=== PATIENT | male | born 1995 | race American Indian/Alaskan Native ===

== ENCOUNTER 2016-11-29 07:15 | Emergency (ER) | payer MEDICAID ==
[2016-11-29] MEDS ORDERED: TYLENOL PO ONE (11:18)
--- NOTE | 2016-11-29 11:19 | Emergency Department Report ---
ED Male HPI - General Chief complaint: Abdominal Pain Stated complaint: GROIN INJURY Time Seen by Provider: 11/29/16 11:14 Source: patient, RN notes reviewed Mode of arrival: Ambulatory Limitations: No Limitations - History of Present Illness Initial comments: This is a 22-year-old male. he is previously unknown to me. The patient presents to the ER with left-sided testicular pain after an accidental groin injury sustained while playing basketball yesterday. He reports that he played basketball yesterday after receiving the injury. The pain is sharp. It increases with palpation and range of motion. It decreases with rest. Patient denies all other complaints. MD Complaint: testicle pain -: Sudden Location: left testicle Radiation: none Severity: moderate Quality: aching Consistency: constant Improves with: rest Worsens with: movement trauma denies other symptoms - Related Data Home Medications Medication Instructions Recorded Confirmed Last Taken Divalproex Sodium [Depakote] 500 mg PO BID 06/24/15 06/24/15 Unknown traZODone 150 mg PO HS 06/24/15 06/24/15 Unknown Allergies Allergy/AdvReac Type Severity Reaction Status Date / Time aspirin Allergy Rash Verified 02/10/15 17:14 ED Review of Systems ROS: Stated complaint: GROIN INJURY Other details as noted in HPI Constitutional: denies: fever Eyes: denies: eye discharge ENT: denies: epistaxis Respiratory: denies: cough Cardiovascular: denies: chest pain Gastrointestinal: denies: abdominal pain Genitourinary: testicular pain. denies: urgency, dysuria, frequency, hematuria , discharge Musculoskeletal: denies: back pain Neurological: denies: weakness ED Past Medical Hx - Past Medical History Previous Medical History?: Yes Hx Psychiatric Treatment: Yes (depression, bipolar) Hx Asthma: Yes - Surgical History Past Surgical History?: Yes Additional Surgical History: right knee surgery - Social History Smoking Status: Never Smoker Substance Use Type: None - Medications Home Medications: Home Medications Medication Instructions Recorded Confirmed Last Taken Type Divalproex Sodium [Depakote] 500 mg PO BID 06/24/15 06/24/15 Unknown History traZODone 150 mg PO HS 06/24/15 06/24/15 Unknown History ED Physical Exam - General Limitations: No Limitations General appearance: alert, in no apparent distress - Head Head exam: Present: atraumatic, normocephalic - Eye Eye exam: Present: normal appearance, EOMI. Absent: nystagmus - ENT ENT exam: Present: normal exam, normal orophraynx, mucous membranes moist - Neck Neck exam: Present: normal inspection, full ROM. Absent: tenderness, meningismus - Respiratory Respiratory exam: Present: normal lung sounds bilaterally. Absent: respiratory distress, wheezes, rales, rhonchi, stridor, chest wall tenderness - Cardiovascular Cardiovascular Exam: Present: normal rhythm, bradycardia, normal heart sounds. Absent: systolic murmur, diastolic murmur, rubs, gallop - GI/Abdominal GI/Abdominal exam: Present: soft, normal bowel sounds. Absent: distended, tenderness, guarding, rebound, rigid, pulsatile mass - Rectal Rectal exam: Present: deferred - exam: Present: testicular tenderness External exam: Present: normal external exam, other (there is left-sided testicular tenderness. There is normal cremasteric reflex bilaterally. There is normal testicular lie bilaterally. Escorted by nurse Aundrea vivar) - Extremities Exam Extremities exam: Present: normal inspection, full ROM, normal capillary refill. Absent: pedal edema, joint swelling, calf tenderness - Back Exam Back exam: Present: normal inspection, full ROM. Absent: tenderness, CVA tenderness (R), CVA tenderness (L), muscle spasm, paraspinal tenderness, vertebral tenderness - Neurological Exam Neurological exam: Present: alert, oriented X3, normal gait, other (Extraocular movements intact. Tongue midline. No facial droop. Facial sensation intact to light touch in the V1, V2, V3 distribution bilaterally. 5 and 5 strength in 4 extremities.. Sensation is intact to light touch in 4 extremities.). Absent : motor sensory deficit - Psychiatric Psychiatric exam: Present: normal affect, normal mood - Skin Skin exam: Present: warm, dry, intact, normal color. Absent: rash ED Course Vital Signs 11/29/16 11/29/16 11/29/16 07:51 12:07 14:08 Temperature 97.6 F 98.0 F Pulse Rate 53 L 67 Respiratory 16 20 20 Rate Blood Pressure 114/70 Blood Pressure 135/72 [Left] O2 Sat by Pulse 100 98 Oximetry - Reevaluation(s) Reevaluation #1: 11/29/16 12:55 ultrasound is negative. Patient wants to go home. He does not endorse any urinary symptoms. He will be discharged. Return precautions are reviewed. ED Medical Decision Making - Lab Data Vital Signs 11/29/16 11/29/16 07:51 12:07 Temperature 97.6 F Pulse Rate 53 L Respiratory 16 20 Rate Blood Pressure 114/70 O2 Sat by Pulse 100 Oximetry - Radiology Data Radiology results: report reviewed, image reviewed Critical care attestation.: If time is entered above; I have spent that time in minutes in the direct care of this critically ill patient, excluding procedure time. ED Disposition Clinical Impression: Left testicular pain Disposition: DC-01 TO HOME OR SELFCARE Is pt being admited?: No Does the pt Need Aspirin: No Condition: Stable Additional Instructions: Take Tylenol every 4-6 hours as needed for pain. Rest and avoid heavy lifting. Avoid strenuous physical activity. Make certain to wear protective gear when playing basketball. Physical activity as tolerated. Follow up with your primary care doctor within the next 2-3 weeks. Follow-up with Dr. Rizo, or any urology specialist within the next 7-10 days if pain persists. Return to the ER right away with new pain, worsening pain, migration of pain, fevers, chills, shortness of breath, chest pain, intractable nausea or vomiting, inability to tolerate liquid feeds. Referrals: PRIMARY CARE, [Primary Care Provider] - 3-5 Days SAMEERA RIZO MD [Staff Physician] - 3-5 Days KAILASH MARINELLI MD [Staff Physician] - 3-5 Days
--- NOTE | 2016-11-29 12:03 | Ultrasound Report ---
Testicular ultrasound: Trauma, pain mostly on the left. The right testicle measures 23 x 31 x 47 mm. The left testicle measures 25 x 28 x 42 mm. Both testicles have a normal echo pattern and normal vascular flow with Doppler and color imaging. The right epididymis measures 1 cm and the left measures 1.2 cm in size. Both appear echogenically unremarkable. A minimal degree of hydrocele fluid is noted on the right side. Impressions: Minimal right hydrocele.
[2016-11-29 14:09] VITALS: BP 135/72
== END 2016-11-29 14:18 | disposition home or self-care (01) ==
LOC: ED 07:15
DX: N50.812 Left testicular pain (principal); F31.9 Bipolar disorder, unspecified; Z88.6 Allergy status to analgesic agent
CPT/HCPCS: 93975

== ENCOUNTER 2017-01-14 23:32 | Emergency (ER) | payer MEDICAID ==
--- NOTE | 2017-01-15 12:07 | Emergency Department Report ---
ED Male HPI - General Chief complaint: Extremity Injury, Lower Stated complaint: PULLED MUSCLE Time Seen by Provider: 01/15/17 11:48 Source: patient Mode of arrival: Ambulatory Limitations: No Limitations - History of Present Illness Initial comments: 21-year-old male past medical history asthma, bipolar disorder presents with complaint of right groin/right testicular pain status post playing basketball last night. Patient states he jumped when he came down he felt pain in his right testicle. This occurred approximately 7:30 PM last night. Patient denies nausea vomiting fever chills or dysuria. States that he has aching sensation in his right testicle. Denies any hematuria. Denies any significant testicular swelling. Location: right testicle Radiation: none Severity: moderate Severity scale (0 -10): 3 Quality: dull Consistency: intermittent Improves with: none Worsens with: movement denies other symptoms - Related Data Home Medications Medication Instructions Recorded Confirmed Last Taken ALBUTEROL Inhaler 1 puff INHALATION Q4H PRN 01/14/17 01/14/17 01/14/17 Previous Rx's Medication Instructions Recorded Last Taken Type Acetaminophen [Acetaminophen TAB] 500 mg PO Q6HR PRN #30 tablet 01/15/17 Unknown Rx Allergies Allergy/AdvReac Type Severity Reaction Status Date / Time aspirin Allergy Rash Verified 02/10/15 17:14 ED Review of Systems ROS: Stated complaint: PULLED MUSCLE Other details as noted in HPI Constitutional: denies: chills, fever Eyes: denies: eye pain, eye discharge, vision change ENT: denies: ear pain, throat pain Respiratory: denies: cough, shortness of breath, wheezing Cardiovascular: denies: chest pain, palpitations Endocrine: no symptoms reported Gastrointestinal: denies: abdominal pain, nausea, diarrhea Genitourinary: denies: urgency, dysuria Musculoskeletal: denies: back pain, joint swelling, arthralgia Skin: denies: rash, lesions Neurological: denies: headache, weakness, paresthesias Psychiatric: denies: anxiety, depression Hematological/Lymphatic: denies: easy bleeding, easy bruising ED Past Medical Hx - Past Medical History Hx Psychiatric Treatment: Yes (depression, bipolar) Hx Asthma: Yes - Surgical History Additional Surgical History: right knee surgery - Social History Smoking Status: Never Smoker Substance Use Type: None - Medications Home Medications: Home Medications Medication Instructions Recorded Confirmed Last Taken Type ALBUTEROL Inhaler 1 puff INHALATION Q4H PRN 01/14/17 01/14/17 01/14/17 History Acetaminophen [Acetaminophen TAB] 500 mg PO Q6HR PRN #30 tablet 01/15/17 Unknown Rx ED Physical Exam - General Limitations: No Limitations General appearance: alert, in no apparent distress - Head Head exam: Present: atraumatic, normocephalic - Eye Eye exam: Present: normal appearance, PERRL, EOMI - ENT ENT exam: Present: mucous membranes moist - Neck Neck exam: Present: normal inspection - Respiratory Respiratory exam: Present: normal lung sounds bilaterally. Absent: respiratory distress - Cardiovascular Cardiovascular Exam: Present: regular rate, normal rhythm. Absent: systolic murmur, diastolic murmur, rubs, gallop - GI/Abdominal GI/Abdominal exam: Present: soft, normal bowel sounds - Rectal Rectal exam: Present: deferred - exam: Present: normal inspection (no palpable hernias no palpable masses no masses in the inguinal rings bilaterally on palpation with finger), testicular tenderness (some mild right testicular discomfort on deep palpation. No palpable hernia and inguinal rings bilaterally on deep) - Extremities Exam Extremities exam: Present: normal inspection - Back Exam Back exam: Present: normal inspection - Neurological Exam Neurological exam: Present: alert, oriented X3, CN II-XII intact, normal gait - Psychiatric Psychiatric exam: Present: normal affect, normal mood - Skin Skin exam: Present: warm, dry, intact, normal color. Absent: rash ED Course Vital Signs 01/14/17 23:37 Temperature 98.2 F Pulse Rate 89 Respiratory 18 Rate Blood Pressure 123/74 Blood Pressure 123/74 [Left] O2 Sat by Pulse 99 Oximetry ED Medical Decision Making - Medical Decision Making A/P: Strained groin muscle, groin muscle pull 1-urinalysis unremarkable, testicular ultrasound unremarkable 2-patient has some pain in the groin with movement of thigh it is likely he strained his groin while playing basketball. Abdomen is soft nontender no right lower quadrant pain 3-extra strength tylenol when necessary, follow-up with primary care Critical care attestation.: If time is entered above; I have spent that time in minutes in the direct care of this critically ill patient, excluding procedure time. ED Disposition Clinical Impression: Groin pain Qualifiers: Laterality: right Qualified Code(s): R10.31 - Right lower quadrant pain Disposition: DC-01 TO HOME OR SELFCARE Is pt being admited?: No Does the pt Need Aspirin: No Condition: Undetermined Instructions: Groin Strain (ED), Groin Pain (ED) Prescriptions: Acetaminophen [Acetaminophen TAB] 500 mg PO Q6HR PRN #30 tablet PRN Reason: Pain Referrals: [facility]– [place]Outside] - 3-5 Days [facility] [Outside] - 3-5 Days Forms: Work/School Release Form(ED) Time of Disposition: 13:06
[2017-01-15 12:33] LABS: Bilirubin,Urine NEG (Negative); Blood,Urine NEG (Negative); Ketones,Urine NEG (Negative); Leukocyte Esterase,Urine NEG (Negative); Mucus,Urine FEW /HPF; Nitrite,Urine NEG (Negative); Protein,Urine <15 mg/dL mg/dL (Negative); Urobilinogen,Urine < 2.0 mg/dL (<2.0); WBC,Urine < 1.0 /HPF (0.0-6.0)
--- NOTE | 2017-01-15 12:47 | Ultrasound Report ---
TESTICULAR ULTRASOUND WITH DUPLEX DOPPLER ULTRASOUND: 01/15/17 12:05:00 CLINICAL: Right testicular pain. COMPARISON: 11/29/16 FINDINGS: High resolution ultrasound demonstrated normal testes with normal echogenicity size and contours. No testicular mass. The right testis measured 4.0 x 2.2 x 3.5cm. The left testis measured 4.9 x 1.9 x 3.0cm. Both testes and epididymes demonstrated normal blood flow by color and duplex Doppler with normal spectral waveforms. No hydrocele. No inguinal hernia identified. IMPRESSION: Normal study. Resolution of a small right hydrocele. No inguinal hernia identified.
[2017-01-15] MEDS ORDERED: TYLENOL PO ONE (12:54)
[2017-01-15 13:36] VITALS: BP 107/88
== END 2017-01-15 13:36 | disposition home or self-care (01) ==
LOC: ED 23:32
DX: R10.31 Right lower quadrant pain (principal); J45.909 Unspecified asthma, uncomplicated
CPT/HCPCS: 81001; 87086; 93975

== ENCOUNTER 2017-01-25 01:59 | Emergency (ER) | payer MEDICAID ==
[2017-01-25 02:53] VITALS: BP 117/51
--- NOTE | 2017-01-25 03:24 | Emergency Department Report ---
ED ENT HPI - General Chief complaint: Sore Throat Stated complaint: SORE THROAT Time Seen by Provider: 01/25/17 03:00 Source: patient Mode of arrival: Ambulatory Limitations: No Limitations - History of Present Illness Initial comments: This is a 1-year-old male nontoxic, well nourished in appearance, no acute signs of distress presents to the ED complaining of sore throat, cough, and rhinorrhea 4 days. Patient describes sore throat as swallowing razor blades with level of 7 out of 10. He denies any chest pain, shortness of breath, nausea, vomiting, chest pain, shortness of breath, numbness or tingling. Patient denies any calf pain or tenderness. Denies recent travels, long car rides or recent hospital stays. Denies hemoptysis. Denies any allergies or past medical history. MD complaint: sore throat -: Gradual, days(s) (4) Location: throat Severity: mild Severity scale (0 -10): 8 Quality: other (sensation swallowing razor blades) Consistency: constant Improves with: none Worsens with: swallowing Associated Symptoms: cough, pain with swallowing, sore throat. denies: fever, gum swelling, toothache, tinnitus, hearing loss, discharge from ear, rhinorrhea - Related Data Home Medications Medication Instructions Recorded Confirmed Last Taken ALBUTEROL Inhaler 1 puff INHALATION Q4H PRN 01/14/17 01/14/17 01/14/17 Previous Rx's Medication Instructions Recorded Last Taken Type Acetaminophen [Acetaminophen TAB] 500 mg PO Q6HR PRN #30 tablet 01/15/17 Unknown Rx Amoxicillin 500 mg PO BID #20 capsule 01/25/17 Unknown Rx Nystas/Diphen/Xyl Visc/Mylanta 30 ml PO DAILY PRN 10 Days 01/25/17 Unknown Rx [Magic Mouthwash] Allergies Allergy/AdvReac Type Severity Reaction Status Date / Time aspirin Allergy Rash Verified 02/10/15 17:14 ED Dental HPI - General Chief complaint: Sore Throat Stated complaint: SORE THROAT Time Seen by Provider: 01/25/17 03:00 Source: patient Mode of arrival: Ambulatory Limitations: No Limitations - Related Data Home Medications Medication Instructions Recorded Confirmed Last Taken ALBUTEROL Inhaler 1 puff INHALATION Q4H PRN 01/14/17 01/14/17 01/14/17 Previous Rx's Medication Instructions Recorded Last Taken Type Acetaminophen [Acetaminophen TAB] 500 mg PO Q6HR PRN #30 tablet 01/15/17 Unknown Rx Amoxicillin 500 mg PO BID #20 capsule 01/25/17 Unknown Rx Nystas/Diphen/Xyl Visc/Mylanta 30 ml PO DAILY PRN 10 Days 01/25/17 Unknown Rx [Magic Mouthwash] Allergies Allergy/AdvReac Type Severity Reaction Status Date / Time aspirin Allergy Rash Verified 02/10/15 17:14 ED Review of Systems ROS: Stated complaint: SORE THROAT Other details as noted in HPI Constitutional: denies: chills, fever Eyes: denies: eye pain, eye discharge, vision change ENT: throat pain. denies: ear pain Respiratory: cough. denies: shortness of breath, wheezing Cardiovascular: denies: chest pain, palpitations Endocrine: no symptoms reported Gastrointestinal: denies: abdominal pain, nausea, diarrhea Genitourinary: denies: urgency, dysuria Musculoskeletal: denies: back pain, joint swelling, arthralgia Skin: denies: rash, lesions Neurological: denies: headache, weakness, paresthesias Psychiatric: denies: anxiety, depression Hematological/Lymphatic: denies: easy bleeding, easy bruising ED Past Medical Hx - Past Medical History Previous Medical History?: Yes Hx Psychiatric Treatment: Yes (depression, bipolar) Hx Asthma: Yes - Surgical History Additional Surgical History: right knee surgery - Social History Smoking Status: Never Smoker - Medications Home Medications: Home Medications Medication Instructions Recorded Confirmed Last Taken Type ALBUTEROL Inhaler 1 puff INHALATION Q4H PRN 01/14/17 01/14/17 01/14/17 History Acetaminophen [Acetaminophen TAB] 500 mg PO Q6HR PRN #30 tablet 01/15/17 Unknown Rx Amoxicillin 500 mg PO BID #20 capsule 01/25/17 Unknown Rx Nystas/Diphen/Xyl Visc/Mylanta 30 ml PO DAILY PRN 10 Days 01/25/17 Unknown Rx [Magic Mouthwash] ED Physical Exam - General Limitations: No Limitations General appearance: alert, in no apparent distress - Head Head exam: Present: atraumatic, normocephalic, normal inspection - Eye Eye exam: Present: normal appearance, PERRL, EOMI. Absent: scleral icterus, conjunctival injection, nystagmus, periorbital swelling, periorbital tenderness Pupils: Present: normal accommodation - ENT ENT exam: Present: mucous membranes moist, TM's normal bilaterally, normal external ear exam - Expanded ENT Exam Expanded Ear exam: Present: normal external inspection Mouth exam: Present: normal external inspection, tongue normal. Absent: drooling, trismus, muffled voice, tongue elevation, laceration Teeth exam: Present: normal inspection Throat exam: Positive: tonsillar erythema, tonsillomegaly (2+), tonsillar exudate, other (no abscess or swelling noted. Uvula midline.). Negative: R peritonsillar mass, L peritonsillar mass - Neck Neck exam: Present: normal inspection, full ROM. Absent: tenderness, meningismus, lymphadenopathy, thyromegaly - Respiratory Respiratory exam: Present: normal lung sounds bilaterally. Absent: respiratory distress, wheezes, rales, rhonchi, stridor, chest wall tenderness, accessory muscle use, decreased breath sounds, prolonged expiratory - Cardiovascular Cardiovascular Exam: Present: regular rate, normal rhythm, normal heart sounds. Absent: bradycardia, tachycardia, irregular rhythm, systolic murmur, diastolic murmur, rubs, gallop - GI/Abdominal GI/Abdominal exam: Present: soft, normal bowel sounds. Absent: distended, tenderness, guarding, rebound, rigid, diminished bowel sounds - Rectal Rectal exam: Present: deferred - Extremities Exam Extremities exam: Present: normal inspection, full ROM, normal capillary refill. Absent: tenderness, pedal edema, joint swelling, calf tenderness - Back Exam Back exam: Present: normal inspection, full ROM. Absent: tenderness, CVA tenderness (R), CVA tenderness (L), muscle spasm, paraspinal tenderness, vertebral tenderness, rash noted - Neurological Exam Neurological exam: Present: alert, oriented X3, CN II-XII intact, normal gait, reflexes normal - Psychiatric Psychiatric exam: Present: normal affect, normal mood - Skin Skin exam: Present: warm, dry, intact, normal color. Absent: rash ED Course Vital Signs 01/25/17 02:47 Temperature 97.7 F Pulse Rate 55 L Respiratory 20 Rate Blood Pressure 117/51 O2 Sat by Pulse 97 Oximetry - Reevaluation(s) Reevaluation #1: 01/25/17 03:22 Patient is speaking in full sentences with no signs of distress. Critical care attestation.: If time is entered above; I have spent that time in minutes in the direct care of this critically ill patient, excluding procedure time. ED Disposition Clinical Impression: Tonsillitis with exudate Disposition: TO HOME OR SELFCARE Is pt being admited?: No Does the pt Need Aspirin: No Condition: Stable Instructions: Tonsillitis (ED), Amoxicillin (By mouth) Additional Instructions: Follow-up with a primary care doctor in 3-5 days or if symptoms worsen and continue return to emergency room as soon as possible possible. Prescriptions: Amoxicillin 500 mg PO BID #20 capsule Nystas/Diphen/Xyl Visc/Mylanta [Magic Mouthwash] 30 ml PO DAILY PRN 10 Days PRN Reason: Sore Throat Referrals: PRIMARY CARE, [Primary Care Provider] - 3-5 Days PARISH VELÁZQUEZ MD [Staff Physician] - 3-5 Days [facility] [Outside] - 3-5 Days [facility] [Outside] - 3-5 Days Forms: Work/School Release Form(ED)
== END 2017-01-25 04:35 | disposition home or self-care (01) ==
LOC: ED 01:59
DX: J03.90 Acute tonsillitis, unspecified (principal); J45.909 Unspecified asthma, uncomplicated; F31.9 Bipolar disorder, unspecified; Z88.6 Allergy status to analgesic agent
CPT/HCPCS: 87116; 87430; 99282

== ENCOUNTER 2017-02-23 02:12 | Emergency (ER) | payer MEDICAID ==
[2017-02-23 03:19] LABS: Basophils % (Auto) 1.2 % (0.0-1.8); Eosinophils % (Auto) 6.3 % (0.0-4.3); Hematocrit 41.1 % (35.5-45.6); Mean Corpuscular HGB Conc 34 % (32-34); Mean Corpuscular Hemoglobin 32 pg (28-32); Mean Corpuscular Volume 93 fl (84-94); Platelet Count 272 K/mm3 (140-440); Red Cell Distribution Width 12.7 % (13.2-15.2); White Blood Count 6.8 K/mm3 (4.5-11.0)
[2017-02-23 03:40] LABS: Anion Gap 15 mmol/L; BUN/Creatinine Ratio 26; Blood Urea Nitrogen 18 mg/dL (9-20); Calcium 8.8 mg/dL (8.4-10.2); Carbon Dioxide 26 mmol/L (22-30); Chloride 101.2 mmol/L (98-107); Glucose 98 mg/dL (75-100); Potassium 3.8 mmol/L (3.6-5.0); Sodium 138 mmol/L (137-145)
[2017-02-23 08:52] VITALS: BP 106/46
--- NOTE | 2017-02-23 10:29 | Emergency Department Report ---
ED Chest Pain HPI - General Chief Complaint: Chest Pain Stated Complaint: CHEST PAIN Time Seen by Provider: 02/23/17 10:07 Source: patient Mode of arrival: Ambulatory Limitations: No Limitations - History of Present Illness Initial Comments: 21-year-old male tells me he was hit in the chest yesterday playing football and is having some chest pain. He appears to be able to move without difficulty. He states that his movement is limited. He is not having any shortness of breath. He denies any fevers or chills. Otherwise he appears well. MD Complaint: chest pain -: Sudden Onset: during exertion Pain Location: left chest Pain Radiation: none Severity scale (0 -10): 0 Worsens With: exertion - Related Data Home Medications Medication Instructions Recorded Confirmed Last Taken ALBUTEROL Inhaler 1 puff INHALATION Q4H PRN 01/14/17 01/14/17 01/14/17 Previous Rx's Medication Instructions Recorded Last Taken Type Amoxicillin 500 mg PO BID #20 capsule 01/25/17 Unknown Rx Nystas/Diphen/Xyl Visc/Mylanta 30 ml PO DAILY PRN 10 Days 01/25/17 Unknown Rx [Magic Mouthwash] Acetaminophen [Acetaminophen TAB] 500 mg PO Q6HR PRN #30 tablet 02/23/17 Unknown Rx Allergies Allergy/AdvReac Type Severity Reaction Status Date / Time aspirin Allergy Rash Verified 02/10/15 17:14 Heart Score - HEART Score History: Slightly suspicious EKG: Normal Age: < 45 Risk factors: 1-2 risk factors Troponin: < normal limit HEART Score: 1 ED Review of Systems ROS: Stated complaint: CHEST PAIN Other details as noted in HPI Respiratory: denies: cough, shortness of breath, SOB with exertion Cardiovascular: chest pain. denies: palpitations Gastrointestinal: denies: nausea, vomiting Neurological: denies: headache, weakness ED Past Medical Hx - Past Medical History Previous Medical History?: Yes Hx Psychiatric Treatment: Yes (depression, bipolar) Hx Asthma: Yes - Surgical History Past Surgical History?: Yes Additional Surgical History: right knee surgery - Family History Family history: no significant - Social History Smoking Status: Never Smoker - Medications Home Medications: Home Medications Medication Instructions Recorded Confirmed Last Taken Type ALBUTEROL Inhaler 1 puff INHALATION Q4H PRN 01/14/17 01/14/17 01/14/17 History Amoxicillin 500 mg PO BID #20 capsule 01/25/17 Unknown Rx Nystas/Diphen/Xyl Visc/Mylanta 30 ml PO DAILY PRN 10 Days 01/25/17 Unknown Rx [Magic Mouthwash] Acetaminophen [Acetaminophen TAB] 500 mg PO Q6HR PRN #30 tablet 02/23/17 Unknown Rx ED Physical Exam - General Limitations: No Limitations General appearance: alert, in no apparent distress - Head Head exam: Present: atraumatic, normocephalic - Eye Eye exam: Present: normal appearance. Absent: scleral icterus, conjunctival injection - ENT ENT exam: Present: mucous membranes moist - Respiratory Respiratory exam: Present: normal lung sounds bilaterally. Absent: respiratory distress, wheezes - Cardiovascular Cardiovascular Exam: Present: regular rate, normal rhythm, normal heart sounds, other. Absent: systolic murmur, diastolic murmur, rubs, gallop - GI/Abdominal GI/Abdominal exam: Present: soft, normal bowel sounds - Rectal Rectal exam: Present: deferred - Extremities Exam Extremities exam: Present: normal inspection - Back Exam Back exam: Present: normal inspection - Neurological Exam Neurological exam: Present: alert, oriented X3 - Psychiatric Psychiatric exam: Present: normal affect, normal mood - Skin Skin exam: Present: warm, dry, intact, normal color. Absent: rash ED Course Vital Signs 02/23/17 02/23/17 02/23/17 02:28 02:33 08:48 Temperature 97.9 F 97.9 F 98.2 F Pulse Rate 52 L 54 L 51 L Respiratory 18 18 18 Rate Blood Pressure 112/53 112/53 Blood Pressure 106/46 [Right] O2 Sat by Pulse 97 98 99 Oximetry 02/23/17 08:56 Temperature Pulse Rate Respiratory 14 Rate Blood Pressure Blood Pressure [Right] O2 Sat by Pulse 100 Oximetry ED Medical Decision Making - Lab Data Result diagrams: 02/23/17 03:08 02/23/17 03:08 Laboratory Results - last 24 hr 02/23/17 02/23/17 03:08 03:08 WBC 6.8 RBC 4.40 Hgb 14.0 Hct 41.1 MCV 93 MCH 32 MCHC 34 RDW 12.7 L Plt Count 272 Lymph % (Auto) 40.8 H [place] % (Auto) 6.3 Eos % (Auto) 6.3 H Baso % (Auto) 1.2 Lymph # 2.8 [place] # 0.4 Eos # 0.4 Baso # 0.1 Seg Neutrophils % 45.4 Seg Neutrophils # 3.1 Sodium 138 Potassium 3.8 Chloride 101.2 Carbon Dioxide 26 Anion Gap 15 BUN 18 Creatinine 0.7 L Estimated GFR > 60 BUN/Creatinine Ratio 26 Glucose 98 Calcium 8.8 Troponin T < 0.010 - Medical Decision Making 21-year-old male who presents emergency department with complaint of chest pain after being hit in the chest while playing football. He is having a difficult to breathing his EKG is unremarkable his labs are unremarkable. Plan to treat him with NSAIDs and discharged. Portions of this chart were dictated with dictation software. There may be dictation errors contained within this note. Critical care attestation.: If time is entered above; I have spent that time in minutes in the direct care of this critically ill patient, excluding procedure time. ED Disposition Clinical Impression: Chest pain Disposition: DC-01 TO HOME OR SELFCARE Is pt being admited?: No Condition: Stable Instructions: Chest Pain (ED) Prescriptions: Acetaminophen [Acetaminophen TAB] 500 mg PO Q6HR PRN #30 tablet PRN Reason: Pain Referrals: PRIMARY CARE, [Primary Care Provider] - 3-5 Days
--- NOTE | 2017-02-23 10:29 | XRay Report ---
PORTABLE CHEST: SOB. An AP portable view of the chest demonstrates a normal cardiac contour considering the limits of this technique. The lungs are clear with no evidence of infiltrate, fluid or failure. IMPRESSION: Normal portable chest.
== END 2017-02-23 11:04 | disposition home or self-care (01) ==
LOC: ED 02:12
DX: R07.9 Chest pain, unspecified (principal); F31.9 Bipolar disorder, unspecified
CPT/HCPCS: 36415; 71010; 80048; 84484; 85025; 93005; 93010

== ENCOUNTER 2017-05-08 21:50 | Emergency (ER) | payer MEDICAID ==
[2017-05-08 22:34] LABS: Bilirubin,Urine NEG (Negative); Blood,Urine NEG (Negative); Color,Urine Yellow (Yellow); Mucus,Urine FEW /HPF; Nitrite,Urine NEG (Negative); Protein,Urine <15 mg/dL mg/dL (Negative)
--- NOTE | 2017-05-09 05:49 | Ultrasound Report ---
FINAL REPORT EXAM: US TESTICULAR DOPPLER COMP HISTORY: Trauma to Testicles TECHNIQUE: Routine sonographic evaluation was obtained of the scrotum including Doppler interrogation of the testicles. FINDINGS: Both testicles are normal in size contour blood flow and echotexture. The right testicle measures 5 cm x 2.3 cm x 3.2 cm. The left testicle measures 4.7 cm x 2.5 cm x 3 cm. The epididymi appear normal bilaterally. There is no evidence of hydrocele or varicocele bilaterally. IMPRESSION: Normal exam. No evidence of trauma to either testicle.
--- NOTE | 2017-05-09 07:32 | Emergency Department Report ---
ED Male HPI - General Chief complaint: Urogenital-Male Stated complaint: TESTACLE PAIN Time Seen by Provider: 05/09/17 07:31 Source: patient Mode of arrival: Ambulatory Limitations: No Limitations - History of Present Illness Initial comments: Patient here reports that he got hit in the testicles while playing basketball yesterday. He is reporting pain to the testicular area. Denies any bleeding or penile drainage. Denies any nausea or vomiting. Denies any urinary burning frequency or urgency. He said his pain is still a 10 at current and feels sore worse with touching and sitting and better with standing. No [id number] medication taken. Denies any fever or chills. Denies any abdominal or back pain. MD Complaint: testicle pain -: Last night Location: left testicle, right flank Radiation: none Severity: mild Severity scale (0 -10): 2 Quality: other (sore) Consistency: intermittent Improves with: other (distended) Worsens with: palpation trauma denies: discharge, swelling, mass, rash, urinary retention, blood in urine, dysuria, fever, nausea/vomiting, incontinence - Related Data Sexually active: Yes Home Medications Medication Instructions Recorded Confirmed Last Taken ALBUTEROL Inhaler 1 puff INHALATION Q4H PRN 01/14/17 01/14/17 01/14/17 Previous Rx's Medication Instructions Recorded Last Taken Type Amoxicillin 500 mg PO BID #20 capsule 01/25/17 Unknown Rx Nystas/Diphen/Xyl Visc/Mylanta 30 ml PO DAILY PRN 10 Days ml 01/25/17 Unknown Rx [Magic Mouthwash] Acetaminophen [Acetaminophen TAB] 500 mg PO Q6HR PRN 4 Days #16 05/09/17 Unknown Rx tablet Allergies Allergy/AdvReac Type Severity Reaction Status Date / Time aspirin Allergy Rash Verified 02/10/15 17:14 ED Review of Systems ROS: Stated complaint: TESTACLE PAIN Other details as noted in HPI Comment: All other systems reviewed and negative Constitutional: no symptoms reported Respiratory: no symptoms reported Gastrointestinal: denies: abdominal pain, nausea, vomiting, diarrhea, constipation Genitourinary: testicular pain. denies: urgency, dysuria, frequency, hematuria , discharge, testicular mass Musculoskeletal: denies: back pain, joint swelling, arthralgia, myalgia Skin: denies: rash Neurological: denies: headache, numbness, paresthesias, confusion, abnormal gait , vertigo ED Past Medical Hx - Past Medical History Previous Medical History?: Yes Hx Psychiatric Treatment: Yes (depression, bipolar) Hx Asthma: Yes - Surgical History Past Surgical History?: Yes Additional Surgical History: right knee surgery - Family History Family history: hypertension - Social History Smoking Status: Never Smoker Substance Use Type: None - Medications Home Medications: Home Medications Medication Instructions Recorded Confirmed Last Taken Type ALBUTEROL Inhaler 1 puff INHALATION Q4H PRN 01/14/17 01/14/17 01/14/17 History Amoxicillin 500 mg PO BID #20 capsule 01/25/17 Unknown Rx Nystas/Diphen/Xyl Visc/Mylanta 30 ml PO DAILY PRN 10 Days ml 01/25/17 Unknown Rx [Magic Mouthwash] Acetaminophen [Acetaminophen TAB] 500 mg PO Q6HR PRN 4 Days #16 05/09/17 Unknown Rx tablet ED Physical Exam - General Limitations: No Limitations General appearance: alert, in no apparent distress - Head Head exam: Present: atraumatic, normocephalic, normal inspection - Eye Eye exam: Present: normal appearance, PERRL, EOMI Pupils: Present: normal accommodation - ENT ENT exam: Present: normal exam, normal orophraynx, mucous membranes moist - Neck Neck exam: Present: normal inspection, full ROM. Absent: tenderness, meningismus, lymphadenopathy - Respiratory Respiratory exam: Present: normal lung sounds bilaterally. Absent: respiratory distress, chest wall tenderness, accessory muscle use - Cardiovascular Cardiovascular Exam: Present: regular rate, normal rhythm, normal heart sounds. Absent: systolic murmur, diastolic murmur - GI/Abdominal GI/Abdominal exam: Present: soft, normal bowel sounds. Absent: distended, tenderness, guarding, rebound, rigid, organomegaly, mass, bruit, pulsatile mass , hernia - exam: Present: normal inspection, circumcision. Absent: testicular tenderness, urethral discharge, scrotal swelling, vertical testicular lie External exam: Present: normal external exam. Absent: erythema, swelling, lesions, lacerations, ecchymosis, bleeding - Expanded Exam Expanded Male exam: Absent: phimosis, paraphimosis, penile swelling, lesions, induration, erythema, perineal induration, balanitis, priapism - Extremities Exam Extremities exam: Present: normal inspection, full ROM, normal capillary refill , other (no clubbing, cyanosis or edema. Positive pulses all extremities. No neurovascular compromise). Absent: tenderness, pedal edema, joint swelling, calf tenderness - Back Exam Back exam: Present: normal inspection, full ROM, CVA tenderness (L). Absent: tenderness, CVA tenderness (R), muscle spasm, paraspinal tenderness, vertebral tenderness, rash noted - Neurological Exam Neurological exam: Present: alert, oriented X3, normal gait, reflexes normal. Absent: motor sensory deficit - Psychiatric Psychiatric exam: Present: normal affect, normal mood - Skin Skin exam: Present: warm, dry, intact, normal color. Absent: rash ED Course Vital Signs 05/08/17 05/09/17 05/09/17 22:01 09:16 09:21 Temperature 98.6 F 98.2 F 98.2 F Pulse Rate 60 61 61 Respiratory 16 16 Rate Blood Pressure 128/64 Blood Pressure 132/92 132/92 [Left] O2 Sat by Pulse 99 100 100 Oximetry 05/09/17 09:24 Temperature 98.2 F Pulse Rate 61 Respiratory 16 Rate Blood Pressure Blood Pressure 132/92 [Left] O2 Sat by Pulse 100 Oximetry - Reevaluation(s) Reevaluation #1: 05/09/17 09:06 Patient remained stable throughout ED course ED Medical Decision Making - Lab Data Lab Results 05/08/17 Range/Units Unknown Urine Color Yellow (Yellow) Urine Turbidity Clear (Clear) Urine pH 7.0 (5.0-7.0) Ur Specific [place] 1.025 (1.003-1.030) Urine Protein <15 mg/dl (Negative) mg/dL Urine Glucose (UA) Neg (Negative) mg/dL Urine Ketones Neg (Negative) mg/dL Urine Blood Neg (Negative) Urine Nitrite Neg (Negative) Urine Bilirubin Neg (Negative) Urine Urobilinogen 4.0 (<2.0) mg/dL Ur Leukocyte Esterase Tr (Negative) Urine WBC (Auto) 2.0 (0.0-6.0) /HPF Urine RBC (Auto) 2.0 (0.0-6.0) /HPF Urine Mucus Few /HPF - Radiology Data Radiology results: report reviewed Ultrasound of testicle remains normal exam. No evidence of trauma to either testicle. There is no evidence of hydrocele or varicocele bilaterally. The epididymidi appears normal bilaterally both testicles are normal in size, contour ,blood flow and exotexure - Medical Decision Making ED course: Patient here after reporting that he had injury after playing basketball to his testicle area. He is reporting pain. Urinalysis negative for any infection. Physical findings for normal testicular exam and normal exam of penis. Ultrasound finding for no abnormalities of scrotum and testicles. This was discussed patient and he voiced understanding. Patient discharged from ED with prescription for Motrin and to follow up with primary care physician. Critical care attestation.: If time is entered above; I have spent that time in minutes in the direct care of this critically ill patient, excluding procedure time. ED Disposition Clinical Impression: Testicular pain Testicular injury Qualifiers: Encounter type: initial encounter Qualified Code(s): S39.94XA - Unspecified injury of external genitals, initial encounter Disposition: TO HOME OR SELFCARE Is pt being admited?: No Does the pt Need Aspirin: No Condition: Stable Instructions: Testicular Self-examination (ED), Testicle Pain (ED) Additional Instructions: Please follow-up with your primary care physician in 2-3 days and if you do not have a primary care physician follow-up at [facility] and or some [facility]. Take Tylenol and this will help with pain if needed. Prescriptions: Acetaminophen [Acetaminophen TAB] 500 mg PO Q6HR PRN 4 Days #16 tablet PRN Reason: Pain Referrals: PRIMARY CARE, [Primary Care Provider] - 2-3 Days [facility] [Outside] - 2-3 Days [facility] [Outside] - 2-3 Days Forms: Work/School Release Form(ED)
[2017-05-09 09:17] VITALS: BP 132/92
== END 2017-05-09 09:24 | disposition home or self-care (01) ==
LOC: ED 21:50
DX: N50.812 Left testicular pain (principal); F31.9 Bipolar disorder, unspecified; J45.909 Unspecified asthma, uncomplicated; Z88.6 Allergy status to analgesic agent; W21.05XA Struck by basketball, initial encounter; Y93.67 Activity, basketball; Y92.89 Other specified places as the place of occurrence of the external cause; Y99.8 Other external cause status
CPT/HCPCS: 81001; 87086; 93975

== ENCOUNTER 2017-07-04 21:53 | Emergency (ER) | payer MEDICAID ==
[2017-07-04 23:45] VITALS: BP 113/62
[2017-07-05 00:54] LABS: Bilirubin,Urine NEG (Negative); Blood,Urine NEG (Negative); Color,Urine Yellow (Yellow); Mucus,Urine 1+ /HPF; Protein,Urine <15 mg/dL mg/dL (Negative)
--- NOTE | 2017-07-05 01:08 | Ultrasound Report ---
FINAL REPORT EXAM: US TESTICULAR DOPPLER COMP HISTORY: Left-sided testicular pain. TECHNIQUE: Directed real-time grayscale and color Doppler ultrasound examination of the scrotum was performed. Comparison is made with prior study 05/09/2017. FINDINGS: The right testis measures 2.9 x 2.5 x 5.0 cm, and is homogeneous in echotexture, without discrete lesion. The right epididymal head measures 1.6 cm, homogeneous in appearance. The left testis measures 3.4 x 2.2 x 4.9 cm, and is homogeneous in echotexture, without discrete lesion. The left epididymal head measures 1.3 cm, homogeneous in appearance. Appropriate color vascularity is seen within both testes, without evidence of torsion or orchitis. There is no significant hydrocele. IMPRESSION: Normal sonographic appearance of the scrotum. No sonographic evidence of testicular torsion or orchitis.
== END 2017-07-05 10:24 | disposition left against medical advice (07) ==
LOC: ED 21:53
DX: N50.819 Testicular pain, unspecified (principal); Z53.21 Procedure and treatment not carried out due to patient leaving prior to being seen by health care provider
CPT/HCPCS: 81001; 93975

== ENCOUNTER 2017-09-20 23:47 | Emergency (ER) | payer MEDICAID ==
[2017-09-20 23:57] VITALS: BP 117/64
== END 2017-09-21 01:26 | disposition left against medical advice (07) ==
LOC: ED 23:47
DX: M79.604 Pain in right leg (principal); J45.909 Unspecified asthma, uncomplicated; F31.9 Bipolar disorder, unspecified; Z88.6 Allergy status to analgesic agent; Z53.21 Procedure and treatment not carried out due to patient leaving prior to being seen by health care provider

== ENCOUNTER 2018-01-15 21:10 | Emergency (ER) | payer MEDICAID ==
[2018-01-15 21:44] VITALS: BP 130/71
[2018-01-15 22:43] LABS: Bilirubin,Urine NEG (Negative); Blood,Urine NEG (Negative); Color,Urine Yellow (Yellow); Hyaline Casts,Urine 4 /LPF; Mucus,Urine FEW /HPF; Protein,Urine <15 mg/dL mg/dL (Negative)
[2018-01-16] MEDS ORDERED: TYLENOL ONE (00:48)
[2018-01-16] MEDS ORDERED: TYLENOL PO ONE (00:58)
--- NOTE | 2018-01-16 00:59 | Emergency Department Report ---
ED Male HPI - General Stated complaint: TESTICAL PAIN Time Seen by Provider: 01/16/18 00:53 Source: patient, old records reviewed (patient has been here 5 times for the same complaint. Always requests a female.) Mode of arrival: Ambulatory Limitations: No Limitations - History of Present Illness Initial comments: 42-year-old -[place] male comes in reporting was playing basketball was kicked in the left testicle. Patient is reporting pain. Patient reports this happened about 6:30 he took ibuprofen which she reports has helped. He denies any dysuria or hematuria or nausea no vomiting. MD Complaint: testicle pain -: hour(s) (3) Location: left testicle Severity scale (0 -10): 5 Quality: aching Consistency: intermittent Improves with: medication - Related Data Home Medications Medication Instructions Recorded Confirmed Last Taken ALBUTEROL Inhaler 1 puff INHALATION Q4H PRN 01/14/17 01/14/17 01/14/17 Previous Rx's Medication Instructions Recorded Last Taken Type Amoxicillin 500 mg PO BID #20 capsule 01/25/17 Unknown Rx Nystas/Diphen/Xyl Visc/Mylanta 30 ml PO DAILY PRN 10 Days ml 01/25/17 Unknown Rx [Magic Mouthwash] Acetaminophen [Acetaminophen TAB] 500 mg PO Q6HR PRN 4 Days #16 05/09/17 Unknown Rx tablet Ibuprofen [Motrin 600 MG tab] 600 mg PO Q8H PRN #15 tablet 01/16/18 Unknown Rx Allergies Allergy/AdvReac Type Severity Reaction Status Date / Time aspirin Allergy Rash Verified 02/10/15 17:14 ED Review of Systems ROS: Stated complaint: TESTICAL PAIN Other details as noted in HPI Comment: All other systems reviewed and negative Genitourinary: testicular pain ED Past Medical Hx - Past Medical History Hx Psychiatric Treatment: Yes (depression, bipolar) Hx Asthma: Yes - Surgical History Additional Surgical History: right knee surgery - Social History Smoking Status: Never Smoker Substance Use Type: None - Medications Home Medications: Home Medications Medication Instructions Recorded Confirmed Last Taken Type ALBUTEROL Inhaler 1 puff INHALATION Q4H PRN 01/14/17 01/14/17 01/14/17 History Amoxicillin 500 mg PO BID #20 capsule 01/25/17 Unknown Rx Nystas/Diphen/Xyl Visc/Mylanta 30 ml PO DAILY PRN 10 Days ml 01/25/17 Unknown Rx [Magic Mouthwash] Acetaminophen [Acetaminophen TAB] 500 mg PO Q6HR PRN 4 Days #16 05/09/17 Unknown Rx tablet Ibuprofen [Motrin 600 MG tab] 600 mg PO Q8H PRN #15 tablet 01/16/18 Unknown Rx ED Physical Exam - General Limitations: No Limitations General appearance: alert, in no apparent distress - Head Head exam: Present: atraumatic, normocephalic - exam: Present: testicular tenderness, vertical testicular lie. Absent: scrotal swelling - Back Exam Back exam: Present: normal inspection - Neurological Exam Neurological exam: Present: alert, oriented X3 - Psychiatric Psychiatric exam: Present: normal affect, normal mood - Skin Skin exam: Present: warm, dry, intact, normal color. Absent: rash ED Course Vital Signs 01/15/18 21:34 Temperature 98.5 F Pulse Rate 66 Respiratory 16 Rate Blood Pressure 130/71 O2 Sat by Pulse 100 Oximetry ED Medical Decision Making - Medical Decision Making Patient has been evaluated by this provider fast track. Given for pain management, ibuprofen a can prior to arrival by patient which she reports has helped with his pain. Ice pack given to patient and prescription for ibuprofen. Discussed the patient he needs to follow up with urology as well as use a sports cup this patient has been here 5 times in the last year for the same incident. Patient verbalized understanding. Has come in requesting a female provider's asking nurses to look at his private parts, patient declined having male to his ultrasound. Critical care attestation.: If time is entered above; I have spent that time in minutes in the direct care of this critically ill patient, excluding procedure time. ED Disposition Clinical Impression: Testicular pain, left, Malingering Disposition: DC-01 TO HOME OR SELFCARE Is pt being admited?: No Does the pt Need Aspirin: No Condition: Stable Instructions: Testicle Pain (ED) Additional Instructions: Take pain medication as needed. Please wear a jock strap and a sports cup when playing sports. Follow-up with the urologist. Prescriptions: Ibuprofen [Motrin 600 MG tab] 600 mg PO Q8H PRN #15 tablet PRN Reason: Pain Referrals: PRIMARY CARE, [Primary Care Provider] - 3-5 Days ARACELIS LIU MD [Staff Physician] - 3-5 Days LEE ALLEN MD [Referring] - 3-5 Days [facility] [Provider Group] - 3-5 Days
== END 2018-01-16 01:15 | disposition home or self-care (01) ==
LOC: ED 21:10
DX: N50.812 Left testicular pain (principal); F31.9 Bipolar disorder, unspecified; J45.909 Unspecified asthma, uncomplicated; Z76.5 Malingerer [conscious simulation]; Z88.6 Allergy status to analgesic agent; W21.05XA Struck by basketball, initial encounter; Y93.67 Activity, basketball; Y92.39 Other specified sports and athletic area as the place of occurrence of the external cause; Y99.8 Other external cause status
CPT/HCPCS: 81001; 99283

== ENCOUNTER 2018-09-23 03:08 | Emergency (ER) | payer MEDICAID ==
--- NOTE | 2018-09-23 03:46 | XRay Report ---
PROCEDURE: XR CHEST 1V AP TECHNIQUE: Chest radiograph single view. HISTORY: Chest Pain COMPARISONS: None . FINDINGS: Heart: Normal. Mediastinum/Vessels: Normal. Lungs/Pleural space: Normal. Bony thorax: No acute osseous abnormality. Life support devices: None. IMPRESSION: No acute cardiopulmonary abnormality. This document is electronically signed by Roxane Lo DO., Sep 23 2018 03:44:53 AM ET
[2018-09-23] MEDS ORDERED: TYLENOL PO STA (03:55)
--- NOTE | 2018-09-23 04:00 | Emergency Department Report ---
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 Affect tazing occurred to the left costochondral region and since that time has been having sharp pains to that area with certain range of motion is in deep breaths. No hemoptysis, no hematemesis. No hematemesis, no shortness of breath, no wheezing. Location: chest Radiation: non-radiation Quality: dull Consistency: constant Worsens with: none Associated Symptoms: denies: confusion, chest pain, diaphoresis, headaches, loss of appetite, malaise, nausea/vomiting, shortness of breath, syncope, weakness Treatments Prior to Arrival: none - Related Data Home Medications Medication Instructions Recorded Confirmed Last Taken ALBUTEROL Inhaler 1 puff INHALATION Q4H PRN 01/14/17 01/14/17 01/14/17 Previous Rx's Medication Instructions Recorded Last Taken Type Amoxicillin 500 mg PO BID #20 capsule 01/25/17 Unknown Rx Nystas/Diphen/Xyl Visc/Mylanta 30 ml PO DAILY PRN 10 Days ml 01/25/17 Unknown Rx [Magic Mouthwash] Acetaminophen [Acetaminophen TAB] 500 mg PO Q6HR PRN 4 Days #16 05/09/17 Unknown Rx tablet Ibuprofen [Motrin 600 MG tab] 600 mg PO Q8H PRN #15 tablet 01/16/18 Unknown Rx methOCARBAMOL [Robaxin TAB] 750 mg PO Q8H PRN #14 tablet 09/23/18 Unknown Rx predniSONE [Deltasone] 50 mg PO QDAY #5 tab 09/23/18 Unknown Rx Allergies Allergy/AdvReac Type Severity Reaction Status Date / Time aspirin Allergy Rash Verified 02/10/15 17:14 ED Review of Systems ROS: Stated complaint: CHEST PAIN Other details as noted in HPI Constitutional: denies: chills, fever Eyes: denies: eye pain, eye discharge, vision change ENT: denies: ear pain, throat pain Respiratory: denies: cough, shortness of breath, wheezing Cardiovascular: denies: chest pain, palpitations Endocrine: no symptoms reported. denies: intolerance to cold, intolerance to heat Gastrointestinal: denies: abdominal pain, nausea, diarrhea Genitourinary: denies: urgency, dysuria Musculoskeletal: denies: back pain, joint swelling, arthralgia Skin: denies: rash, lesions Neurological: denies: headache, weakness, paresthesias Psychiatric: denies: anxiety, depression Hematological/Lymphatic: denies: easy bleeding, easy bruising ED Past Medical Hx - Past Medical History Previous Medical History?: Yes Hx Psychiatric Treatment: Yes (depression, bipolar) Hx Asthma: Yes - Surgical History Past Surgical History?: Yes Additional Surgical History: right knee surgery - Social History Smoking Status: Never Smoker Substance Use Type: None - Medications Home Medications: Home Medications Medication Instructions Recorded Confirmed Last Taken Type ALBUTEROL Inhaler 1 puff INHALATION Q4H PRN 01/14/17 01/14/17 01/14/17 History Amoxicillin 500 mg PO BID #20 capsule 01/25/17 Unknown Rx Nystas/Diphen/Xyl Visc/Mylanta 30 ml PO DAILY PRN 10 Days ml 01/25/17 Unknown Rx [Magic Mouthwash] Acetaminophen [Acetaminophen TAB] 500 mg PO Q6HR PRN 4 Days #16 05/09/17 Unknown Rx tablet Ibuprofen [Motrin 600 MG tab] 600 mg PO Q8H PRN #15 tablet 01/16/18 Unknown Rx methOCARBAMOL [Robaxin TAB] 750 mg PO Q8H PRN #14 tablet 09/23/18 Unknown Rx predniSONE [Deltasone] 50 mg PO QDAY #5 tab 09/23/18 Unknown Rx ED Physical Exam - General Limitations: No Limitations General appearance: alert, in no apparent distress - Head Head exam: Present: atraumatic, normocephalic - Eye Eye exam: Present: normal appearance, PERRL, EOMI Pupils: Present: normal accommodation - ENT ENT exam: Present: normal exam, normal orophraynx, mucous membranes moist, TM's normal bilaterally, normal external ear exam - Neck Neck exam: Present: normal inspection, full ROM. Absent: meningismus, lymphadenopathy - Respiratory Respiratory exam: Present: normal lung sounds bilaterally, chest wall tenderness (left chest region in the area of the the intercostals. Pain is reproducible with palpation and with range of motion of the torso. Lungs clear to auscultation). Absent: respiratory distress, rales, rhonchi, accessory muscle use, decreased breath sounds - Cardiovascular Cardiovascular Exam: Present: regular rate, normal rhythm. Absent: systolic murmur, diastolic murmur, rubs, gallop - GI/Abdominal GI/Abdominal exam: Present: soft, normal bowel sounds. Absent: tenderness, guarding, hyperactive bowel sounds, hypoactive bowel sounds, organomegaly, mass, pulsatile mass, hernia - Rectal Rectal exam: Present: deferred - Extremities Exam Extremities exam: Present: normal inspection - Back Exam Back exam: Present: normal inspection - Neurological Exam Neurological exam: Present: alert, oriented X3 - Psychiatric Psychiatric exam: Present: normal affect, normal mood - Skin Skin exam: Present: warm, dry, intact, normal color. Absent: rash ED Course Vital Signs 09/23/18 03:13 Temperature 98.0 F Pulse Rate 67 Respiratory 20 Rate Blood Pressure 115/72 O2 Sat by Pulse 97 Oximetry Critical care attestation.: If time is entered above; I have spent that time in minutes in the direct care of this critically ill patient, excluding procedure time. ED Disposition Clinical Impression: Costochondral chest pain, Taser injury Disposition: DC-01 TO HOME OR SELFCARE Is pt being admited?: No Does the pt Need Aspirin: No Condition: Stable Instructions: Chest Pain (ED), Costochondritis (ED) Referrals: UMAIR BROUSSARD MD [Primary Care Provider] - 3-5 Days
[2018-09-23 04:15] VITALS: BP 114/64
== END 2018-09-23 04:15 | disposition home or self-care (01) ==
LOC: ED 03:08
DX: T75.4XXA Electrocution, initial encounter (principal); F31.9 Bipolar disorder, unspecified; J45.909 Unspecified asthma, uncomplicated; Z79.899 Other long term (current) drug therapy; R07.1 Chest pain on breathing; Z88.6 Allergy status to analgesic agent; W86.8XXA Exposure to other electric current, initial encounter; Y93.89 Activity, other specified; Y92.89 Other specified places as the place of occurrence of the external cause; Y99.8 Other external cause status
CPT/HCPCS: 71045; 93005; 93010; 99283

== ENCOUNTER 2018-11-10 04:28 | Emergency (ER) | payer MEDICAID ==
[2018-11-10 04:43] VITALS: BP 118/45
--- NOTE | 2018-11-10 06:05 | XRay Report ---
CHEST PA AND LATERAL VIEWS INDICATION: chest pain, hit on chest. COMPARISON: None. FINDINGS: Support devices: None. Heart: Within normal limits. Lungs/Pleura: No acute pulmonary or pleural findings. No fractures are identified. IMPRESSION: 1. No significant abnormality. Signer Name: Ye Shields MD Signed: 11/10/2018 6:00 AM Workstation Name: [id number]
== END 2018-11-10 05:00 | disposition left against medical advice (07) ==
LOC: ED 04:28
DX: R07.89 Other chest pain (principal); Z53.21 Procedure and treatment not carried out due to patient leaving prior to being seen by health care provider
CPT/HCPCS: 71046; 93005; 93010

== ENCOUNTER 2019-09-14 02:29 | Emergency (ER) | payer MEDICAID ==
[2019-09-14 02:35] VITALS: BP 121/49
--- NOTE | 2019-09-14 03:03 | XRay Report ---
CHEST 1 VIEW INDICATION: Chest Pain. COMPARISON: 09/23/2018 FINDINGS: Support devices: None. Heart: Within normal limits. Lungs/Pleura: No acute air space or interstitial disease. Additional findings: None. IMPRESSION: 1. No acute findings. Signer Name: Tano Walters MD Signed: 09/14/2019 2:59 AM Workstation Name: [email or web address]
--- NOTE | 2019-09-14 03:56 | Emergency Department Report ---
ED General Adult HPI - General Chief complaint: Chest Pain Stated complaint: CHEST PAIN Time Seen by Provider: 09/14/19 03:43 Source: patient Mode of arrival: Ambulatory Limitations: No Limitations - History of Present Illness Initial comments: Mr. Mckeon is a 24-year-old male who presents for left lateral chest wall pain. States he was training a day for work at about 6 PM and accidentally got tased. States 4/10 chest wall pain and irritation at taser site prongs were removed intact at work states muscle soreness at this time. There is no fever, chills, shortness of breath, nausea vomiting, dizziness or lightheadedness. There is no burn to skin noted incident have been 10 hours ago at this point. Onset/Timin -: hour(s) Location: chest (chest wall ) Radiation: non-radiation Severity scale (0 -10): 4 Quality: burning Consistency: intermittent Improves with: none Worsens with: movement Associated Symptoms: chest pain (chest wall pain ). denies: cough, diaphoresis, fever/chills, malaise, nausea/vomiting, shortness of breath, weakness Treatments Prior to Arrival: none - Related Data Home Medications Medication Instructions Recorded Confirmed Last Taken ALBUTEROL Inhaler 1 puff INHALATION Q4H PRN 01/14/17 01/14/17 01/14/17 Previous Rx's Medication Instructions Recorded Last Taken Type Amoxicillin 500 mg PO BID #20 capsule 01/25/17 Unknown Rx Nystas/Diphen/Xyl Visc/Mylanta 30 ml PO DAILY PRN 10 Days ml 01/25/17 Unknown Rx [Magic Mouthwash] Acetaminophen [Acetaminophen TAB] 500 mg PO Q6HR PRN 4 Days #16 05/09/17 Unknown Rx tablet Ibuprofen [Motrin 600 MG tab] 600 mg PO Q8H PRN #15 tablet 01/16/18 Unknown Rx methOCARBAMOL [Robaxin TAB] 750 mg PO Q8H PRN #14 tablet 09/23/18 Unknown Rx predniSONE [Deltasone] 50 mg PO QDAY #5 tab 09/23/18 Unknown Rx Ibuprofen [Motrin 800 MG tab] 800 mg PO Q8HR PRN #30 tablet 09/14/19 Unknown Rx Allergies Allergy/AdvReac Type Severity Reaction Status Date / Time aspirin Allergy Rash Verified 02/10/15 17:14 ED Review of Systems ROS: Stated complaint: CHEST PAIN Other details as noted in HPI Constitutional: denies: chills, fever Eyes: denies: eye pain, eye discharge, vision change ENT: denies: ear pain, throat pain Respiratory: denies: cough, shortness of breath, wheezing Cardiovascular: chest pain. denies: palpitations, dyspnea on exertion, orthopnea, edema, syncope, paroxysmal nocturnal dyspnea Endocrine: no symptoms reported Gastrointestinal: denies: abdominal pain, nausea, vomiting, diarrhea Genitourinary: denies: urgency, dysuria Musculoskeletal: denies: back pain, joint swelling, arthralgia Skin: denies: rash, lesions, pruritus Neurological: denies: headache, weakness, paresthesias Psychiatric: denies: anxiety, depression Hematological/Lymphatic: denies: easy bleeding, easy bruising ED Past Medical Hx - Past Medical History Hx Psychiatric Treatment: Yes (depression, bipolar) Hx Asthma: Yes - Surgical History Additional Surgical History: right knee surgery - Social History Smoking Status: Never Smoker Substance Use Type: None - Medications Home Medications: Home Medications Medication Instructions Recorded Confirmed Last Taken Type ALBUTEROL Inhaler 1 puff INHALATION Q4H PRN 01/14/17 01/14/17 01/14/17 History Amoxicillin 500 mg PO BID #20 capsule 01/25/17 Unknown Rx Nystas/Diphen/Xyl Visc/Mylanta 30 ml PO DAILY PRN 10 Days ml 01/25/17 Unknown Rx [Magic Mouthwash] Acetaminophen [Acetaminophen TAB] 500 mg PO Q6HR PRN 4 Days #16 05/09/17 Unknown Rx tablet Ibuprofen [Motrin 600 MG tab] 600 mg PO Q8H PRN #15 tablet 01/16/18 Unknown Rx methOCARBAMOL [Robaxin TAB] 750 mg PO Q8H PRN #14 tablet 09/23/18 Unknown Rx predniSONE [Deltasone] 50 mg PO QDAY #5 tab 09/23/18 Unknown Rx Ibuprofen [Motrin 800 MG tab] 800 mg PO Q8HR PRN #30 tablet 09/14/19 Unknown Rx ED Physical Exam - General Limitations: No Limitations General appearance: alert, in no apparent distress - Head Head exam: Present: atraumatic, normocephalic - Eye Eye exam: Present: normal appearance, PERRL, EOMI Pupils: Present: normal accommodation - ENT ENT exam: Present: mucous membranes moist - Neck Neck exam: Present: normal inspection, full ROM. Absent: tenderness - Respiratory Respiratory exam: Present: normal lung sounds bilaterally, chest wall tenderness. Absent: respiratory distress, wheezes, stridor - Cardiovascular Cardiovascular Exam: Present: regular rate, normal rhythm, normal heart sounds. Absent: systolic murmur, diastolic murmur, rubs, gallop - GI/Abdominal GI/Abdominal exam: Present: soft, normal bowel sounds. Absent: distended, tenderness, bruit, hernia - Rectal Rectal exam: Present: deferred - Extremities Exam Extremities exam: Present: normal inspection, full ROM, normal capillary refill. Absent: tenderness - Back Exam Back exam: Present: normal inspection, full ROM. Absent: tenderness, CVA tend erness (R), CVA tenderness (L) - Neurological Exam Neurological exam: Present: alert, oriented X3, CN II-XII intact, normal gait, reflexes normal. Absent: motor sensory deficit - Expanded Neurological Exam Expanded Patient oriented to: Present: person, place, time Speech: Present: fluid speech Motor strength exam: RUE: 5, LUE: 5, RLE: 5, LLE: 5 Best Eye Response ([place]): (4) open spontaneously Best Motor Response ([place]): (6) obeys commands Best Verbal Response ([place]): (5) oriented [place] Total: 15 - Psychiatric Psychiatric exam: Present: normal affect, normal mood - Skin Skin exam: Present: warm, dry, intact, normal color. Absent: rash ED Course Vital Signs 09/14/19 02:33 Temperature 98.4 F Pulse Rate 54 L Respiratory 20 Rate Blood Pressure 121/49 O2 Sat by Pulse 98 Oximetry ED Medical Decision Making - EKG Data EKG shows normal: sinus rhythm Rate: normal - EKG Data When compared to previous EKG there are: other (no previous ekg in records) Interpretation: normal EKG (NSR no ST Elevated CO, interp by attending. 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 COMPARISON: 09/23/2018 FINDINGS: Support devices: None. Heart: Within normal limits. Lungs/Pleura: No acute air space or interstitial disease. Additional findings: None. IMPRESSION: 1. No acute findings. Signer Name: Tano Walters MD Signed: 09/14/2019 1:59 AM Workstation Name: [email or web address] - Medical Decision Making Patient given electrical shock precautions verbalizes understanding of same, this is chest wall irritation. Patient will be treated with ibuprofen as needed soap and water warm soaks. Patient will follow-up with his occupational health and PCP in 2 to 3 days. Patient verbalizes agreement and understanding with discharge plan. Patient DC'd home in stable condition at this time. Critical care attestation.: If time is entered above; I have spent that time in minutes in the direct care of this critically ill patient, excluding procedure time. ED Disposition Clinical Impression: Chest wall pain, Electrical burn of skin Disposition: DC-01 TO HOME OR SELFCARE Is pt being admited?: No Does the pt Need Aspirin: No Condition: Stable Instructions: Chest Pain (ED) Prescriptions: Ibuprofen [Motrin 800 MG tab] 800 mg PO Q8HR PRN #30 tablet PRN Reason: pain Referrals: PRIMARY CARE, [Primary Care Provider] - 3-5 Days Forms: Work/School Release Form(ED) Time of Disposition: 04:03
== END 2019-09-14 04:12 | disposition home or self-care (01) ==
LOC: ED 02:29
DX: R07.89 Other chest pain (principal); J45.909 Unspecified asthma, uncomplicated; F31.9 Bipolar disorder, unspecified; Z79.899 Other long term (current) drug therapy; Z88.6 Allergy status to analgesic agent; W86.8XXA Exposure to other electric current, initial encounter; Y93.89 Activity, other specified; Y92.89 Other specified places as the place of occurrence of the external cause; Y99.8 Other external cause status
CPT/HCPCS: 71045; 93005; 99283